=== PATIENT | female | born 1965 ===

== ENCOUNTER 2023-09-19 10:59 | Emergency (ER) | payer BC ==
[2023-09-19 11:08] VITALS: BP 180/85; PULSE 74
[2023-09-19] MEDS: Lidocaine 1% 5 ML VIAL INJECT ONE (11:17)
[2023-09-19] MEDS: Bacitracin Oint 1 GM U/D Packet ONE (11:29)
[2023-09-19] MEDS: Bacitracin Oint 1 GM U/D Packet TOP ONE (11:31)
== END 2023-09-19 12:00 | disposition home or self-care (01) ==
LOC: DL.ED 10:59
DX: S51.812A Laceration without foreign body of left forearm, initial encounter (principal); Z79.899 Other long term (current) drug therapy; W26.8XXA Contact with other sharp object(s), not elsewhere classified, initial encounter
CPT/HCPCS: 12001; 99282; A9270; J3490